=== PATIENT | female | born 2000 | race Caucasian/White ===

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

== ENCOUNTER 2018-09-05 11:27 | Inpatient (IN) ==
[2018-09-05] MEDS ORDERED: DEXTROSE 5%-LACTATED RINGERS 1,000 ML IV PRN (18:02)
[2018-09-05] MEDS ORDERED: RINGER'S SOLUTION,LACTATED 1,000 ML IV ONE (18:02)
[2018-09-05] MEDS ORDERED: ONDANSETRON 4 MG TAB.RAPDIS PO PRN (18:02)
[2018-09-05] MEDS ORDERED: MISOPROSTOL 100 MCG TABLET VG PRN (18:02)
[2018-09-05] MEDS: CLINDAMYCIN PHOSPHATE 900 MG in DEXTROSE 5 % IN WATER 100 ML IV SCH ×4 (19:29→20:25)
[2018-09-05 19:31] LABS: Cocaine Ur Negative (NEGATIVE); Urine Barbiturate Negative (NEGATIVE); Urine Benzodiazepines Negative (NEGATIVE); Urine Opiates Negative (NEGATIVE); Urine PCP Negative (NEGATIVE); Urine THC Negative (NEGATIVE)
[2018-09-06] MEDS: CLINDAMYCIN PHOSPHATE 900 MG in DEXTROSE 5 % IN WATER 100 ML IV SCH ×2 (03:16)
[2018-09-06] MEDS ORDERED: LIDOCAINE HCL 50 ML VIAL IJ PRN (03:42)
[2018-09-06] MEDS ORDERED: ONDANSETRON HCL/PF 2 MG/ML VIAL IV PRN (05:10)
[2018-09-06] MEDS ORDERED: BUPIVACAINE HCL/0.9 % NACL/PF 250 ML EP PRN (05:10)
[2018-09-06] MEDS ORDERED: NALOXONE HCL 1 MG/1 ML SYRG IV PRN (05:10)
[2018-09-06] MEDS ORDERED: LIDOCAINE HCL/EPINEPHRINE 20 ML VIAL IJ ONE (05:13)
[2018-09-06] MEDS ORDERED: BUPIVACAINE HCL/PF 30 ML VIAL EP SCH (05:15)
--- NOTE | 2018-09-06 05:49 | HP ---
Chief Complaint - Chief Complaint Date of Service: 09/06/18 Time of Service: 05:37 Chief Complaint: elective induction of labor History of Present Illness: 17 yo at 39 2/7 weeks presents to L&D for elective induction of labor. This complicated by GE reflux and obesity. Rh positive Rubella immune GBS positive (PCN allergy) Medical History (Updated 09/06/18 @ 05:47 by Denny Andrade DO) Influenza vaccination declined by patient (Acute) Onset Date: ~01/29/18 Dysuria (Resolved) Onset Date: Unknown Otitis media (Resolved) Onset Date: Unknown Right foot sprain (Resolved) Onset Date: Unknown Bronchitis (Resolved) Onset Date: Unknown GE reflux (Chronic) Onset Date: Unknown try otc ranitidine 150 mg po bid Obesity Onset Date: Unknown Tobacco abuse Onset Date: Unknown Shingles Onset Date: ~2001 Strep pharyngitis Onset Date: 2016 Lower abdominal pain Onset Date: 2016 Surgical History: Surgical History (Updated 01/29/18 @ 10:06 by Saundra Cabral RN) No history of previous surgery Onset Date: Unknown Family History: Family History (Updated 01/29/18 @ 10:09 by Saundra Cabral RN) Grandmother Kidney disease failure COPD (chronic obstructive pulmonary disease) paternal Grandmother Diabetes Asthma Mother Alive and well Father Alcoholic Drug addiction Social History: Preferred Language Monegasque Smoking Status Former smoker Abuse History No History of abuse Psych History No pertinent hx (Last Reviewed 08/31/18 @ 14:16 by Hermelindo Stevenson RN) No Social History Section defined Review Of Systems (GEN) - Review of Systems Generalized/Overall Review: Present: No Symptoms Reported EENTM: Present: No Symptoms Reported Respiratory: Present: No Symptoms Reported Cardiac: Present: No Symptoms Reported Abdominal: Present: No Symptoms Reported Genitourinary: Present: No Symptoms Reported Musculoskeletal: Present: No Symptoms Reported Neurological: Present: No Symptoms Reported Skin: Present: No Symptoms Reported Endocrine: Present: No Symptoms Reported Immunizations: IMMUNIZATION HX Immunizations Up to Date Yes History of Influenza Vaccine No Hx Pneumococcal Vaccination No Allergies/Adverse Reactions: Allergies Allergy/AdvReac Type Severity Reaction Status Date / Time Penicillins Allergy Severe Anaphylaxis Verified 09/05/18 18:03 amoxicillin Allergy Verified 09/05/18 18:03 Home Medications: HOME MEDICATIONS Pnv95/Iron Fum/Folic Acid [ Formula Tablet] 1 ea PO DAILY 01/16/18 [Last Taken 05/30/18 21:00] acetaminophen 500 mg tablet 1,000 mg PO Q6H PRN tab 02/26/18 [Last Taken Unknown] omeprazole 20 mg tablet,delayed release 20 mg PO DAILY 05/08/18 [Last Taken 09/03/18 21:00] calcium carbonate 200 mg calcium (500 mg) chewable tablet 400 mg PO DAILY PRN tab 08/13/18 [Last Taken Unknown] Exam - Exam Vital Signs: Vital Signs - Last Taken Temp 36.7 C 09/05/18 18:13 Pulse 99 09/05/18 18:13 Resp 20 09/05/18 18:13 BP 140/63 H 09/05/18 18:13 Pulse Ox 97 09/05/18 18:13 Constitutional: Present: Alert, Oriented x3, Cooperative, No distress ENT Exam: Present: hearing grossly normal Breasts: Present: Exam deferred Respiratory: Present: lungs clear, no respiratory distress Cardiovascular/Chest: Present: regular rate, rhythm Abdomen: Present: soft, nontender, no rebound tenderness, other - gravid /Rectal: Present: Other - cervix - FT/TH/-2 Extremity: Present: no calf tenderness, lower extremity edema - 1/4 Skin Exam: Present: normal color, warm/dry, no cyanosis Neurologic: Present: alert, normal mood/affect, oriented x 3 Appearance: Present: appropriate appearance, appropriate insight Eye contact: Present: cooperative, good eye contact Thoughts: Present: normal thought pattern Diagnostic Studies: Laboratory Results Negative (NEGATIVE) 09/05/18 19:08 Negative (NEGATIVE) 09/05/18 19:08 Ur Phencyclidine Scrn Negative (NEGATIVE) 09/05/18 19:08 Urine Amphetamine Negative (NEGATIVE) 09/05/18 19:08 U Benzodiazepines Scrn Negative (NEGATIVE) 09/05/18 19:08 Negative (NEGATIVE) 09/05/18 19:08 Negative (NEGATIVE) 09/05/18 19:08 Assessment/Plan - Assessment/Plan (1) Encounter for elective induction of labor Assessment: Admit for Cytotec induction of labor. IV Clindamycin for GBS prophylaxis. Problem: Acute (2) GBS (group B Streptococcus carrier), +RV culture, currently Problem: Acute (3) Obesity Problem: Acute Qualifiers: Obesity type: due to excess calories Obesity classification: adult class 2 (BMI 35 - 39.9) Serious obesity comorbidity presence: without serious comorbidity Body mass index: BMI 38.0-38.9 Qualified Code(s): E66.09 - Other obesity due to excess calories; Z68.38 - Body mass index (BMI) 38.0-38.9, adult (4) GE reflux Problem: Chronic Qualifiers: Esophagitis presence: esophagitis presence not specified Qualified Code(s): K21.9 - Gastro-esophageal reflux disease without esophagitis
--- NOTE | 2018-09-06 05:54 | PN ---
Progess Note - Interim Date: 09/06/18 Time: 05:49 Narrative: 09/06/18 05:49 Patient very uncomfortable with contractions S/P Cytotec 25 mcg x1. Cervix - complete/-2 FHT 130 reassurng, no decelerations, good accelerations, good BTBV Ctxs q 3-4 min Impression: 39 2/7 wk IUP, elective induction of labor, GBS carrier - s/p IV Clindamycin 900mg x 2.\ Plan: Epidural. Anticipate within the next hour.
--- NOTE | 2018-09-06 05:58 | ANES ---
Anesthesia Pre Procedure Eval Vitals/Labs: Last Vital Signs Temp 35.6 C L 09/06/18 05:53 Pulse 98 09/06/18 05:53 Resp 22 H 09/06/18 05:53 BP 142/81 H 09/06/18 05:53 Pulse Ox 98 09/06/18 05:53 HOME MEDICATIONS Pnv95/Iron Fum/Folic Acid [ Formula Tablet] 1 ea PO DAILY 01/16/18 [Last Taken 05/30/18 21:00] acetaminophen 500 mg tablet 1,000 mg PO Q6H PRN tab 02/26/18 [Last Taken Unknown] omeprazole 20 mg tablet,delayed release 20 mg PO DAILY 05/08/18 [Last Taken 09/03/18 21:00] calcium carbonate 200 mg calcium (500 mg) chewable tablet 400 mg PO DAILY PRN tab 08/13/18 [Last Taken Unknown] Allergies/Adverse Reactions: Allergies Allergy/AdvReac Type Severity Reaction Status Date / Time Penicillins Allergy Severe Anaphylaxis Verified 09/05/18 18:03 amoxicillin Allergy Verified 09/05/18 18:03 - Planned Procedure Planned Procedure: labor epidural Medical History (Updated 09/06/18 @ 05:49 by Denny Andrade DO) Influenza vaccination declined by patient (Acute) Onset Date: ~01/29/18 Dysuria (Resolved) Onset Date: Unknown Otitis media (Resolved) Onset Date: Unknown Right foot sprain (Resolved) Onset Date: Unknown Bronchitis (Resolved) Onset Date: Unknown GE reflux (Chronic) Onset Date: Unknown try otc ranitidine 150 mg po bid Obesity Onset Date: Unknown Tobacco abuse Onset Date: Unknown Shingles Onset Date: ~2001 Strep pharyngitis Onset Date: 2017 Lower abdominal pain Onset Date: 2017 Surgical History (Updated 01/29/18 @ 10:06 by Saundra Cabral RN) No history of previous surgery Onset Date: Unknown Family History (Updated 01/29/18 @ 10:09 by Saundra Cabral RN) Grandmother Kidney disease failure COPD (chronic obstructive pulmonary disease) paternal Grandmother Diabetes Asthma Mother Alive and well Father Alcoholic Drug addiction - Anesthesia Assessment and Plan ASA Class: PS, II Anesthesia Type Plan: Epidural
--- NOTE | 2018-09-06 06:01 | ANES ---
Anesthesia Procedure Note Procedure Note: ANESTHESIA PROCEDURE NOTE Date of Procedure: 09/06/2018. Time of procedure: 539. Performed by: Thien Aparicio CRNA Etiologist: None. Preprocedure diagnosis: Active labor. Post procedure diagnosis: Same. Procedure: Insertion of labor epidural. Indications: The patient is a 17 -year-old female in active labor requesting labor epidural for pain management. Findings: See below. Details of the procedure: The patient was placed in a sitting position. DuraPrep as well as Betadine swabs X3 was applied to the patient's back. Patient was then draped in a sterile fashion. Lidocaine 1% was infiltrated to the skin and subcutaneous tissues at the level of the L3-4 interspace. The epidural space was identified using a 18-gauge Tuohy needle with [id number] technique. Epidural catheter was inserted to a depth of 13 centimeters at skin. Negative test dose was elicited using 3 mL of 1.5% preservative-free lidocaine plus epinephrine 1 200,000. The epidural catheter was then taped and secured in place. A loading dose of 8 mL of 0.25% preservative-free bupivacaine was administered to the epidural catheter after negative aspiration for blood and CSF. EBL: Minimal. Fluids: N/A. Specimen: N/A. Post procedure condition: The patient tolerated the procedure well. No complications were noted. Thank you for this consultation. Thien Aparicio CRNA
--- NOTE | 2018-09-06 06:01 | ANES ---
Post Anesthesia Assessment - Vital Signs Vitals: Last Vital Signs Temp 35.6 C L 09/06/18 05:53 Pulse 98 09/06/18 05:53 Resp 22 H 09/06/18 05:53 BP 142/81 H 09/06/18 05:53 Pulse Ox 98 09/06/18 05:53 Airway Patency: Normal - Mental Status Level Of Consciousness: Awake - N/V Assessment Nausea/Vomiting Presence: None Dehydration:: No
[2018-09-06] MEDS: OXYTOCIN/DEXTROSE 5%-WATER 30 UNITS/500 ML BAG IV ONE ×2 (06:44→11:01)
[2018-09-06] MEDS ORDERED: CALCIUM CARBONATE 500 MG TAB.CHEW PO PRN (08:38)
[2018-09-06] MEDS ORDERED: oxyCODONE HCL/ACETAMINOPHEN 1 TAB TABLET PO PRN (08:38)
[2018-09-06] MEDS ORDERED: GLYCERIN/WITCH HAZEL LEAF 40 APPL BOX TP PRN (08:38)
[2018-09-06] MEDS ORDERED: BENZOCAINE/MENTHOL 81 SPRAY CAN TP PRN (08:38)
[2018-09-06] MEDS ORDERED: SENNOSIDES 8.6 MG TABLET PO PRN (08:38)
[2018-09-06] MEDS ORDERED: BISACODYL 10 MG SUPP.RECT RC PRN (08:38)
[2018-09-06] MEDS ORDERED: HYDROCORTISONE 30 APPL TUBE TP PRN (08:38)
[2018-09-06] MEDS ORDERED: IBUPROFEN 800 MG TABLET PO PRN (08:38)
[2018-09-06] MEDS ORDERED: OXYTOCIN/DEXTROSE 5%-WATER 30 UNITS/500 ML BAG IV ONE (08:38)
[2018-09-06] MEDS ORDERED: PANTOPRAZOLE SODIUM 20 MG TABLET.DR PO PRN (08:38)
--- NOTE | 2018-09-06 08:41 | OR ---
Operative Report - Dictated Report Narrative: Indication: Suspicion of potential/immediate compromise Pre Procedure: Patient was counseled to the risk, benefits, and alternatives to operative vaginal delivery. All questions were answered. Patient consented to proceed with operative vaginal delivery. Cervix was completely dilated and effaced, maternal- size appropriate for application, bladder was emptied, flexion point identified, cup choice appropri ate for application site, maternal tissue excluded from vacuum cup heart rate interpretation: Deep prolonged decelerations to 80-90 bpm, EFW 3300 g, station +2, Position of head MARLIN Anesthesia: epidural Procedure: Total application time of the Kiwi Pro with Palm Pump was 40 seconds Maximum vacuum achieved was 500 mm Hg Number of pulls - 1 Number of involuntary releases -0 Vacuum reduced between contractions Advancement in station with each pull Degree of rotation 0-45 Post Procedure: Viable male born at 0750 on 09[birth year]2018 with Apgars 9 and 9, weighing 3298 g in MARLIN position. There was a tight nuchal cord which I was unable to reduce to after delivery of the baby. Within seconds of delivery infant was pink and vigorously crying within 20 seconds of delivery. Cord clamping was delayed approximately 1 minute. Placenta spontaneously delivered EBL 100 mL Cord gases not collected Lacerations- second-degree vaginal laceration (4 cm) and first-degree left labial laceration repaired with 3-0 Vicryl Rapide no injury, no shoulder dystocia History for History for Definition: * The number of deliveries resulting in a live the patient experienced prior to current hospitalization * The previous delivery of live twins or any live multiple gestation is considered one live event. *If primagravida or nulliparous is documented select zero for the number of previous live births. Live Events: Live Events: 0
[2018-09-06] MEDS: IBUPROFEN 800 MG TABLET PO PRN ×2 (11:41→23:10)
[2018-09-06] MEDS: DOCUSATE SODIUM 100 MG CAPSULE PO SCH ×2 (11:44→23:10)
[2018-09-06] MEDS: PRENATAL VITS96/IRON FUM/FOLIC 1 TAB TABLET PO SCH (11:44)
[2018-09-07] MEDS: PRENATAL VITS96/IRON FUM/FOLIC 1 TAB TABLET PO SCH (10:06)
[2018-09-07] MEDS: DOCUSATE SODIUM 100 MG CAPSULE PO SCH ×2 (10:06→21:38)
--- NOTE | 2018-09-07 11:48 | PN ---
Subjective - Date and Time Seen Date: 09/07/18 Time: 11:47 Objective - Vitals Vitals: Last Vital Signs Temp 36.8 C 09/07/18 07:13 Pulse 93 09/07/18 07:13 Resp 20 09/07/18 07:13 BP 136/76 09/07/18 07:13 Pulse Ox 93 09/07/18 07:13 Patient denies complaints. Lochia wnl Abdomen - soft, nontender Uterus - firm, at umbilicus - 1 No calf tenderness Impression: day #1 - s/p vacuum-assisted vaginal delivery for nonreassuring tracing. Second-degree vaginal laceration repaired. Morbid obesity Plan: Continue routine care Cauti Physician Documentation - Urinary Catheter Management Urethral ([place]) Date of Insertion: 09/06/18 Time of Insertion: 06:55 Date of Removal: 09/06/18 Time of Removal: 07:40 Assessment/Plan - Problems/Diagnosis (1) Encounter for elective induction of labor Problem: Acute (2) GBS (group B Streptococcus carrier), +RV culture, currently Problem: Acute (3) Obesity Problem: Acute Qualifiers: Obesity type: due to excess calories Obesity classification: adult class 2 (BMI 35 - 39.9) Serious obesity comorbidity presence: without serious comorbidity Body mass index: BMI 38.0-38.9 Qualified Code(s): E66.09 - Other obesity due to excess calories; Z68.38 - Body mass index (BMI) 38.0-38.9, adult (4) GE reflux Problem: Chronic Qualifiers: Esophagitis presence: esophagitis presence not specified Qualified Code(s): K21.9 - Gastro-esophageal reflux disease without esophagitis
[2018-09-08] MEDS: DOCUSATE SODIUM 100 MG CAPSULE PO SCH ×2 (08:43→21:17)
[2018-09-08] MEDS: PRENATAL VITS96/IRON FUM/FOLIC 1 TAB TABLET PO SCH (08:43)
--- NOTE | 2018-09-08 13:21 | PN ---
Subjective - Date and Time Seen Date: 09/08/18 Time: 13:11 Objective - Vitals Vitals: Last Vital Signs Temp 36.5 C 09/08/18 12:39 Pulse 80 09/08/18 12:39 Resp 18 09/08/18 12:39 BP 133/87 09/08/18 12:39 Pulse Ox 97 09/08/18 07:20 Patient denies complaints. Lochia wnl Abdomen - soft, nontender Uterus - firm, at umbilicus - 2 No calf tenderness Impression: day #2 - s/p spontaneous vaginal delivery. Baby staying due to elevated bilirubin Plan: Routine discharge instructions. Board for baby Cauti Physician Documentation - Urinary Catheter Management Urethral ([place]) Date of Insertion: 09/06/18 Time of Insertion: 06:55 Date of Removal: 09/06/18 Time of Removal: 07:40 Assessment/Plan - Problems/Diagnosis (1) Encounter for elective induction of labor Problem: Acute (2) GBS (group B Streptococcus carrier), +RV culture, currently Problem: Acute (3) Obesity Problem: Acute Qualifiers: Obesity type: due to excess calories Obesity classification: adult class 2 (BMI 35 - 39.9) Serious obesity comorbidity presence: without serious comorbidity Body mass index: BMI 38.0-38.9 Qualified Code(s): E66.09 - Other obesity due to excess calories; Z68.38 - Body mass index (BMI) 38.0-38.9, adult (4) GE reflux Problem: Chronic Qualifiers: Esophagitis presence: esophagitis presence not specified Qualified Code(s): K21.9 - Gastro-esophageal reflux disease without esophagitis
[2018-09-08] MEDS: IBUPROFEN 800 MG TABLET PO PRN (19:56)
[2018-09-08 20:12] VITALS: BP 165/83
== END 2018-09-08 23:55 | disposition home or self-care (01) | DRG 806 ==
LOC: OB 17:49
PROVIDERS: ADMIT Obstetrics & Gynecology; ATTEND Obstetrics & Gynecology
CPT/HCPCS: 59025; 80307

== ENCOUNTER 2020-03-01 14:41 | Inpatient (IN) ==
[2020-03-01] MEDS ORDERED: ONDANSETRON 4 MG TAB.RAPDIS PO PRN (15:10)
[2020-03-01] MEDS ORDERED: RINGER'S SOLUTION,LACTATED 1,000 ML IV ONE (15:10)
[2020-03-01] MEDS ORDERED: MISOPROSTOL 100 MCG TABLET VG PRN (15:10)
[2020-03-01] MEDS ORDERED: OXYTOCIN/0.9 % SODIUM CHLORIDE 30 UNITS/500 ML BAG IV ONE (15:10)
[2020-03-01] MEDS ORDERED: DEXTROSE 5%-LACTATED RINGERS 1,000 ML IV PRN (15:10)
[2020-03-01] MEDS ORDERED: INSULIN REGULAR, HUMAN 100 UNITS in NORMAL SALINE 100 ML IV PRN ×2 (15:10)
--- NOTE | 2020-03-01 17:40 | HP ---
Chief Complaint - Chief Complaint Date of Service: 03/01/20 Time of Service: 17:28 Chief Complaint: Induction of labor for gestational diabetes History of Present Illness: 19 yo at 39 weeks admitted for induction of labor due to GDM. This complicated by GDM and obesity. Rh positive Rubella immune GBS negative Medical History (Last Reviewed 03/01/20 @ 17:32 by Denny Andrade DO) Gestational diabetes (Acute) Onset Date: 12/09/19 FSBS wnl NST reactive HAYLEE Body mass index (BMI) greater than 35 (Chronic) Influenza vaccination declined Onset Date: 01/13/20 Obesity Onset Date: Unknown Tobacco abuse Onset Date: Unknown Bronchitis (Resolved) Onset Date: Unknown Chest wall discomfort (Resolved) Dysuria (Resolved) Onset Date: Unknown Encounter for elective induction of labor (Resolved) GBS (group B Streptococcus carrier), +RV culture, currently (Resolved) GE reflux (Resolved) Onset Date: Unknown try otc ranitidine 150 mg po bid Group B Streptococcus carrier, delivered, current hospitalization (Resolved) Influenza vaccination declined by patient (Resolved) Onset Date: ~01/29/18 Nausea and vomiting during prior to 22 weeks gestation (Resolved) Normal breast feeding (Resolved) Obesity (Resolved) Otitis media (Resolved) Onset Date: Unknown (Resolved) Onset Date: ~01/29/18 Right foot sprain (Resolved) Onset Date: Unknown Shingles Onset Date: ~2001 Status post vacuum-assisted vaginal delivery (Resolved) Strep pharyngitis Onset Date: 2016 Vaginal delivery (Resolved) Vomiting during (Resolved) Weakness (Resolved) Lower abdominal pain Onset Date: 2016 Surgical History: Surgical History (Last Reviewed 03/01/20 @ 17:32 by Denny Andrade DO) No history of previous surgery Onset Date: Unknown Family History: Family History (Last Reviewed 03/01/20 @ 17:32 by Denny Andrade DO) Grandmother Kidney disease failure COPD (chronic obstructive pulmonary disease) paternal Grandmother Diabetes Asthma Mother Alive and well Father Alcoholic Drug addiction Social History: (Last Reviewed 03/01/20 @ 17:32 by Denny Andrade DO) Social History: Marital status: Single current occupational status: unemployed current occupational exposures/hazards: No Highest level of school completed/degree received: high school graduate Service: No Tobacco: Smoking Status: Former smoker Alcohol: alcohol intake: never Substance Use: substance use type: does not use Dietary Habits: caffeine: No Exercise: Physical activity type: none Personal Safety: victim of physical abuse: No victim of emotional abuse: No victim of sexual abuse: No Review Of Systems (GEN) - Review of Systems Generalized/Overall Review: Present: No Symptoms Reported EENTM: Present: No Symptoms Reported Respiratory: Present: No Symptoms Reported Cardiac: Present: No Symptoms Reported Abdominal: Present: No Symptoms Reported Genitourinary: Present: No Symptoms Reported Musculoskeletal: Present: No Symptoms Reported Neurological: Present: No Symptoms Reported Skin: Present: No Symptoms Reported Endocrine: Present: No Symptoms Reported Immunizations: IMMUNIZATION HX Immunizations Up to Date Yes History of Influenza Vaccine No Hx Pneumococcal Vaccination No Allergies/Adverse Reactions: Allergies Allergy/AdvReac Type Severity Reaction Status Date / Time amoxicillin Allergy Severe Anaphylaxis Verified 03/01/20 15:04 Penicillins Allergy Severe Anaphylaxis Verified 03/01/20 15:04 Home Medications: HOME MEDICATIONS acetaminophen 500 mg tablet 1,000 mg PO Q6H PRN tab 02/26/18 [Last Taken Unknown] omeprazole 20 mg tablet,delayed release 20 mg PO DAILY PRN 08/08/19 [Last Taken Unknown] blood sugar diagnostic See Rx Instructions .ROUTE .MEDSUPPLY #100 ea 12/09/19 [Last Taken Unknown] blood-glucose meter See Rx Instructions .ROUTE .MEDSUPPLY #1 ea 12/09/19 [Last Taken Unknown] lancets 28 gauge See Rx Instructions .ROUTE .MEDSUPPLY #100 ea 12/17/19 [Last Taken Unknown] insulin syringe-needle U-100 1 mL 31 gauge x 5/16" See Rx Instructions .ROUTE .MEDSUPPLY #100 ea 12/18/19 [Last Taken Unknown] acetone (urine) test See Rx Instructions .ROUTE .MEDSUPPLY #25 ea 12/30/19 [Last Taken Unknown] Acetaminophen [Tylenol] 1,000 mg PO Q6H PRN 03/01/20 [Last Taken Unknown] Vits96/Iron Fum/Folic [ S] 1 tab PO DAILY 03/01/20 [Last Taken Unknown] Exam - Exam Vital Signs: Vital Signs - Last Taken Temp 37 C 03/01/20 15:23 Pulse 100 03/01/20 15:23 Resp 16 03/01/20 15:23 BP 133/69 03/01/20 15:23 Pulse Ox 99 03/01/20 15:23 Constitutional: Present: Alert, Oriented x3, Cooperative, No distress ENT Exam: Present: hearing grossly normal Neck: Present: non-tender, trachea midline. Absent: thyromegaly Breasts: Present: Exam deferred Respiratory: Present: lungs clear, no respiratory distress Cardiovascular/Chest: Present: normal peripheral pulses, regular rate, rhythm Abdomen: Present: soft, nontender, no rebound tenderness, other - gravid /Rectal: Present: Other - Cervix //-3 Extremity: Present: no pedal edema, no calf tenderness Skin Exam: Present: normal color, warm/dry, no cyanosis Neurologic: Present: alert, normal mood/affect Appearance: Present: appropriate appearance, appropriate insight Eye contact: Present: cooperative, good eye contact Thoughts: Present: normal thought pattern, normal mood /affect Assessment/Plan - Assessment/Plan (1) Gestational diabetes Assessment: Admit for cytotec induction of labor. Epidural and pitocin PRN. DM/insulin drip protocol. Problem: Acute Qualifiers: Gestational diabetes mellitus control: diet-controlled Trimester: third trimester Qualified Code(s): O24.410 - Gestational diabetes mellitus in , diet controlled (2) Body mass index (BMI) greater than 35 Problem: Chronic
[2020-03-01] MEDS ORDERED: NALOXONE HCL 1 MG/1 ML SYRG IV PRN (18:08)
[2020-03-01] MEDS ORDERED: BUPIVACAINE HCL/0.9 % NACL/PF 250 ML EP PRN (18:08)
[2020-03-01] MEDS ORDERED: ONDANSETRON HCL/PF 2 MG/ML VIAL IV PRN (18:08)
[2020-03-01] MEDS ORDERED: fentaNYL CITRATE/PF 50 MCG/ML AMPUL IT SCH (18:15)
--- NOTE | 2020-03-01 18:33 | ANES ---
Anesthesia Pre Procedure Eval Vitals/Labs: Last Vital Signs Temp 37 C 03/01/20 15:23 Pulse 100 03/01/20 15:23 Resp 16 03/01/20 15:23 BP 133/69 03/01/20 15:23 Pulse Ox 99 03/01/20 15:23 HOME MEDICATIONS acetaminophen 500 mg tablet 1,000 mg PO Q6H PRN tab 02/26/18 [Last Taken Unknown] omeprazole 20 mg tablet,delayed release 20 mg PO DAILY PRN 08/08/19 [Last Taken Unknown] blood sugar diagnostic See Rx Instructions .ROUTE .MEDSUPPLY #100 ea 12/09/19 [Last Taken Unknown] blood-glucose meter See Rx Instructions .ROUTE .MEDSUPPLY #1 ea 12/09/19 [Last Taken Unknown] lancets 28 gauge See Rx Instructions .ROUTE .MEDSUPPLY #100 ea 12/17/19 [Last Taken Unknown] insulin syringe-needle U-100 1 mL 31 gauge x 5/16" See Rx Instructions .ROUTE .MEDSUPPLY #100 ea 12/18/19 [Last Taken Unknown] acetone (urine) test See Rx Instructions .ROUTE .MEDSUPPLY #25 ea 12/30/19 [Last Taken Unknown] Acetaminophen [Tylenol] 1,000 mg PO Q6H PRN 03/01/20 [Last Taken Unknown] Vits96/Iron Fum/Folic [ S] 1 tab PO DAILY 03/01/20 [Last Taken Unknown] Allergies/Adverse Reactions: Allergies Allergy/AdvReac Type Severity Reaction Status Date / Time amoxicillin Allergy Severe Anaphylaxis Verified 03/01/20 15:04 Penicillins Allergy Severe Anaphylaxis Verified 03/01/20 15:04 - Planned Procedure Planned Procedure: medical induction for gestational diabetes 39 week Medication List Reviewed:: Yes Allergies Verified: Yes Medical History (Last Reviewed 03/01/20 @ 18:31 by Tyron Vaughn CRNA) Gestational diabetes (Acute) Onset Date: 12/09/19 FSBS wnl NST reactive HAYLEE Body mass index (BMI) greater than 35 (Chronic) Influenza vaccination declined Onset Date: 01/13/20 Obesity Onset Date: Unknown Tobacco abuse Onset Date: Unknown Bronchitis (Resolved) Onset Date: Unknown Chest wall discomfort (Resolved) Dysuria (Resolved) Onset Date: Unknown Encounter for elective induction of labor (Resolved) GBS (group B Streptococcus carrier), +RV culture, currently (Resolved) GE reflux (Resolved) Onset Date: Unknown try otc ranitidine 150 mg po bid Group B Streptococcus carrier, delivered, current hospitalization (Resolved) Influenza vaccination declined by patient (Resolved) Onset Date: ~01/29/18 Nausea and vomiting during prior to 22 weeks gestation (Resolved) Normal breast feeding (Resolved) Obesity (Resolved) Otitis media (Resolved) Onset Date: Unknown (Resolved) Onset Date: ~01/29/18 Right foot sprain (Resolved) Onset Date: Unknown Shingles Onset Date: ~2001 Status post vacuum-assisted vaginal delivery (Resolved) Strep pharyngitis Onset Date: 2016 Vaginal delivery (Resolved) Vomiting during (Resolved) Weakness (Resolved) Lower abdominal pain Onset Date: 2016 Surgical History (Last Reviewed 03/01/20 @ 18:31 by Tyron Vaughn CRNA) No history of previous surgery Onset Date: Unknown Family History (Last Reviewed 03/01/20 @ 17:32 by Denny Andrade DO) Grandmother Kidney disease failure COPD (chronic obstructive pulmonary disease) paternal Grandmother Diabetes Asthma Mother Alive and well Father Alcoholic Drug addiction - Family Anesthesia History Family History:: no untoward family reactions to anesthesia, no familial bleeding tendencies, no family history of clotting disorders, no family history of premature - Airway/Neck/Teeth Within Normal Limits:: Yes Teeth Condition: intact Neck Exam: full range of motion Mallampatti Score: 2 Thyromental (T-M) distance: > 6 cm Mandibulo Hyoid distance: > 3 cm - Respiratory Respiratory Physical: lungs clear Smoking Status: Former smoker Sleep Apnea currently treated: No Sleep Apnea by current assessment: No - Cardiovascular Tolerate Activity: Fair Heart Sounds: S1 & S2, Regular - Gastrointestinal NPO since: 2399 - Anesthesia Assessment and Plan ASA Class: PS, II, E Anesthesia Type Plan: Epidural - placement for labor analgesia
--- NOTE | 2020-03-01 18:56 | ANES ---
Post Anesthesia Discharge - Transfer of Care Transfer of Care handoff given to nurse: Yes - Discharge from PACU Discharge from PACU when meets criteria: Yes - Comfortable post Epidural
--- NOTE | 2020-03-01 19:00 | ANES ---
Anesthesia Procedure Note Procedure Note: ANESTHESIA PROCEDURE NOTE Date of Procedure: 03/01/2020 Time of procedure: 6:30 PM. Performed by: MARY KATE Trivedi CRNA, MSN [place]: . Preprocedure diagnosis: Active labor, labor pain. Post procedure diagnosis: Same. Procedure:Epidural for labor analgesia L3-4. Indications: Labor pain. Ms. Shields has a history of rapid progression of labor, her most recent labor progressed to quickly for analgesic intervention. She has requested an epidural prior to and increasing pain experience. Findings: See below. Details of the procedure: The patient was placed on the side of the bed in sitting positionand prepped with DuraPrep then draped in a sterile fashion. Lidocaine 1% was infiltrated to the skin and subcutaneous tissues at the level of the L3-4 interspace. An 18-gauge Touhy needle was used to approach the epidural space with loss of resistance technique. Once loss of resistance was achieved a 27-gauge spinal needle was passed through the epidural needle and CSF was contacted. After CSF returned, 20 mcg of fentanyl was injected in the spinal needle was removed the epidural catheter was then threaded approximately 4 cm in the epidural needle was removed. The catheter was taped in place and after careful aspiration 3 mL of 1.5% lidocaine with 1-200,000 epinephrine was injected without change in maternal heart rate or sensorium. . EBL: Minimal. Fluids: N/A. Specimen: N/A. Post procedure condition: The patient tolerated the procedure well with good rel ief. No complications were noted. Thank you for this consultation. Tyron Vaguhn CRNA, ARNP, MSN
--- NOTE | 2020-03-01 19:12 | ANES ---
Post Anesthesia Assessment - Vital Signs Vitals: Last Vital Signs Temp 37 C 03/01/20 15:23 Pulse 100 03/01/20 15:23 Resp 16 03/01/20 15:23 BP 133/69 03/01/20 15:23 Pulse Ox 99 03/01/20 15:23 Airway Patency: Normal - Mental Status Level Of Consciousness: Awake, Alert, Appropriate - Pain Level Pain Score: 0 - N/V Assessment Nausea/Vomiting Presence: None Dehydration:: No
--- NOTE | 2020-03-01 22:40 | PN ---
Progess Note - Interim Date: 03/01/20 Time: 22:37 Narrative: Patient rating her contractions 6 out of 10 Vital signs stable. BS 97 FHT: 140 baseline, reassuring contractions irregular Cervix: /-2, AROM-clear Impression: Intrauterine at 39 weeks induction of labor for gestationa l diabetes Plan: We will start Pitocin and IV fluid bolus for epidural
--- NOTE | 2020-03-02 06:08 | PN ---
Progess Note - Interim Date: 03/02/20 Time: 06:04 Narrative: 03/02/20 06:04 Patient comfortable with epidural Vital signs stable. Pitocin at 6 mu/min. FHT: 135 baseline, moderate variability with severe variable decelerations with contractions with good return to baseline. Contractions q 2-3 min Cervix: Complete/0 station Impression: Intrauterine at 39 1/7 weeks induction of labor for gestational diabetes. Baby in MARLIN position but too high to attempt operative vaginal delivery at this point. Discussed with patient and father of the baby possible need for operative vaginal delivery or section if baby's stops tolerating variable decelerations. Plan: Continue present plan. Begin preparations for section if needed.
--- NOTE | 2020-03-02 09:00 | OR ---
Operative Report - Dictated Report Narrative: Spontaneous vaginal delivery of viable male at 0832 on 03/02/2020 with Apgars 9 and 9, weighing 4253 g in MARLIN position with tight nuchal cord x1. There was an approximately 1-1/2-minute deceleration in the 60 - 80s just prior to . Baby's heart rate was 140 within the first 20 seconds of and he began vigorously crying by 30 seconds of . Cord clamping delayed approximately 1 minute Placenta delivered complete, intact, with three vessel cord Estimated blood loss: Less than 50 ml Anesthesia: Epidural Lacerations: 4 cm second-degree perineal laceration repaired with 3-0 Vicryl Rapide History for History for Definition: * The number of deliveries resulting in a live the patient experienced prior to current hospitalization * The previous delivery of live twins or any live multiple gestation is considered one live event. *If primagravida or nulliparous is documented select zero for the number of previous live births. Live Events: Live Events: 1
[2020-03-02] MEDS ORDERED: SENNOSIDES 8.6 MG TABLET PO PRN (09:04)
[2020-03-02] MEDS ORDERED: IBUPROFEN 800 MG TABLET PO PRN ×2 (09:04)
[2020-03-02] MEDS ORDERED: BISACODYL 10 MG SUPP.RECT RC PRN (09:04)
[2020-03-02] MEDS ORDERED: oxyCODONE HCL/ACETAMINOPHEN 1 TAB TABLET PO PRN (09:04)
[2020-03-02] MEDS ORDERED: GLYCERIN/WITCH HAZEL LEAF 40 APPL BOX TP PRN (09:04)
[2020-03-02] MEDS ORDERED: BENZOCAINE/MENTHOL 81 SPRAY CAN TP PRN (09:04)
[2020-03-02] MEDS ORDERED: HYDROCORTISONE 30 APPL TUBE TP PRN (09:04)
[2020-03-02] MEDS ORDERED: OXYTOCIN/0.9 % SODIUM CHLORIDE 30 UNITS/500 ML BAG IV ONE (09:04)
[2020-03-02] MEDS: DOCUSATE SODIUM 100 MG CAPSULE PO SCH (21:31)
[2020-03-03] MEDS ORDERED: PRENATAL VITS96/IRON FUM/FOLIC 1 TAB TABLET PO SCH (09:00)
--- NOTE | 2020-03-03 09:10 | PN ---
Subjective - Date and Time Seen Date: 03/03/20 Time: 09:08 Objective - Vitals Vitals: Last Vital Signs Temp 36.2 C 03/03/20 07:50 Pulse 88 03/03/20 07:50 Resp 20 03/03/20 07:50 BP 115/62 03/03/20 07:50 Pulse Ox 99 03/03/20 07:50 Patient denies complaints. Breast-feeding. Fasting blood sugar 83 Lochia wnl abdomen - soft, nontender Uterus -firm, at umbilicus - 1 No calf tenderness Impression: day #1 - s/p spontaneous vaginal delivery. Gestational diabetes-resolved. Patient desires early discharge. Plan: Continue routine care. Discharge instructions given. Follow- up in the office in 3 to 4 weeks as scheduled. Patient to check fasting blood sugar and 1 hour postprandial the day before her morning of her visit. Cauti Physician Documentation - Urinary Catheter Management Urethral ([place]) Date of Insertion: 03/02/20 Time of Insertion: 00:10 Date of Removal: 03/02/20 Time of Removal: 05:30 Assessment/Plan - Problems/Diagnosis (1) Gestational diabetes Problem: Acute Qualifiers: Gestational diabetes mellitus control: diet-controlled Trimester: third Qualified Code(s): O24.410 - Gestational diabetes mellitus in , diet controlled (2) Body mass index (BMI) greater than 35 Problem: Chronic
[2020-03-03] MEDS: DOCUSATE SODIUM 100 MG CAPSULE PO SCH (10:15)
[2020-03-03 13:05] VITALS: BP 136/63
== END 2020-03-03 12:35 | disposition home or self-care (01) | DRG 807 ==
LOC: OB 14:41
PROVIDERS: ADMIT Obstetrics & Gynecology; ATTEND Obstetrics & Gynecology